=== PATIENT | male | born 1940 | race Caucasian/White ===

== ENCOUNTER 2021-06-12 07:00 | Inpatient (IN) | payer OTHER, BC ==
[2021-06-12 07:08] VITALS: BMI 30.3
[2021-06-12 08:31] LABS: HEMATOCRIT 30.5 % (35.4-49); HEMOGLOBIN 10.5 GM/dL (11.7-16.9); MCH 30.2 pg (25.7-33.7); MCHC 34.6 g/dl (32.0-35.9); MEAN CELL VOLUME 87.4 fl (80-96); MEAN PLT VOLUME 7.4 fl (7.5-11.1); PLATELET COUNT 169 10^3/uL (134-434); RBC 3.49 M/mm3 (4.00-5.60); RDW 13.5 % (11.9-15.9); WHITE BLOOD COUNT 12.9 K/mm3 (4.0-10.0)
[2021-06-12 08:36] LABS: INR 2.14 (0.83-1.09); PROTHROMBIN TIME (PATIENT) 24.1 SEC (9.7-13.0)
[2021-06-12 08:39] LABS: ACTIVATED PTT 28.9 SECONDS (25.2-36.5)
[2021-06-12 08:49] LABS: CALCIUM 8.9 mg/dL (8.5-10.1)
[2021-06-12 08:51] LABS: ALBUMIN 3.3 g/dl (3.4-5.0); BLOOD UREA NITROGEN 28.2 mg/dL (7-18)
[2021-06-12 08:53] LABS: CREATININE 1.1 mg/dL (0.55-1.3)
[2021-06-12 08:55] LABS: BILIRUBIN,TOTAL 0.6 mg/dL (0.2-1); TOT PROT 7.6 g/dl (6.4-8.2)
[2021-06-12 09:23] LABS: EPI CELLS 0 /uL (0-25.1); HYALINE CASTS 2 /uL (0-3.1); URINE APPEARANCE CLOUDY; URINE BACTERIA >9,000 /uL (0-1359); URINE BILIRUBIN NEGATIVE (NEGATIVE); URINE COLOR YELLOW; URINE GLUCOSE (UA) NEGATIVE (NEGATIVE); URINE KETONE NEGATIVE (NEGATIVE); URINE LEUK ESTERASE 1+ (NEGATIVE); URINE NITRITE NEGATIVE (NEGATIVE); URINE PROTEIN 2+ (NEGATIVE); URINE RBC 369 /uL (0-23.9); URINE UROBILINOGEN 0.2 mg/dL (0.2-1.0); URINE WBC 396 /uL (0-25.8)
[2021-06-12] MEDS ORDERED: CEFTRIAXONE 1,000 MG in DEXTROSE 5%-WATER - 50 ML IVPB ONE (09:38)
[2021-06-12] MEDS ORDERED: CEFTRIAXONE 1 GM/50 ML BAG ONE (10:16)
[2021-06-12 10:25] LABS: ANISOCYTOSIS 1+; MACROCYTOSIS 0; PLATELET ESTIMATE NORMAL
[2021-06-12] MEDS ORDERED: AZITHROMYCIN IVPB 500 MG in DEXTROSE 5%-WATER - 250 ML IVPB ONE (11:00)
[2021-06-12] MEDS ORDERED: AZITHROMYCIN IVPB 500 MG/250 ML BAG IVPB ONE (11:28)
[2021-06-12] MEDS: ATORVASTATIN CA 10 MG TABLET (FP) PO SCH (18:15)
[2021-06-12] MEDS: CHOLECALCIFEROL (VIT D3) 1,000 UNIT (25 MCG) TABLET PO SCH (18:15)
[2021-06-12] MEDS ORDERED: CHOLECALCIFEROL (VIT D3) 1,000 UNIT (25 MCG) TABLET ONE (18:23)
[2021-06-12] MEDS ORDERED: ATORVASTATIN CA 10 MG TABLET (FP) ONE (18:23)
[2021-06-12] MEDS: FLUoxetine HCL 20 MG CAPSULE PO SCH (20:42)
[2021-06-12] MEDS ORDERED: ACETAMINOPHEN 500 MG TABLET (FP) PO SCH (22:00)
[2021-06-12] MEDS: POLYETHYLENE GLYCOL (HEALTHYLAX) 3350 17 GM PACKET PO SCH (23:23)
[2021-06-12] MEDS: APIXABAN 5 MG TABLET PO SCH (23:23)
[2021-06-12] MEDS ORDERED: ACETAMINOPHEN 1000 MG/100 ML VIAL IVPB PRN (23:23)
[2021-06-12] MEDS: QUEtiapine FUMARATE 25 MG TABLET PO SCH (23:23)
[2021-06-12] MEDS ORDERED: HEPARIN NA (PORCINE) 5,000 UNITS/ML 1ML VIAL IVPUSH ONE (23:45)
[2021-06-12] MEDS ORDERED: HEPARIN NA (PORCINE) 5,000 UNITS/ML 1ML VIAL IVPUSH PRN ×2 (23:45)
[2021-06-13] MEDS: HEPARIN INFUSION - 25,000 UNITS/500 ML INFUS.BAG IVPB SCH ×2 (00:23→23:46)
[2021-06-13] MEDS: hydrOXYzine HCL 10 MG/5 ML LIQUID BULK BOTTLE PO SCH ×2 (00:27→21:44)
[2021-06-13 01:09] LABS: BASO % 0.3 % (0-2.0); EOS % 0.1 % (0-4.5); HEMATOCRIT 29.3 % (35.4-49); HEMOGLOBIN 10.2 GM/dL (11.7-16.9); LYMPH % 5.1 % (8-40); MCH 30.5 pg (25.7-33.7); MCHC 34.9 g/dl (32.0-35.9); MEAN CELL VOLUME 87.5 fl (80-96); MEAN PLT VOLUME 7.7 fl (7.5-11.1); MONO % 4.9 % (3.8-10.2); NEUT % 89.6 % (42.8-82.8); PLATELET COUNT 176 10^3/uL (134-434); RBC 3.35 M/mm3 (4.00-5.60); RDW 13.6 % (11.9-15.9); WHITE BLOOD COUNT 14.7 K/mm3 (4.0-10.0)
[2021-06-13 01:28] LABS: CALCIUM 8.9 mg/dL (8.5-10.1)
[2021-06-13 01:29] LABS: ALBUMIN 3.2 g/dl (3.4-5.0); BLOOD UREA NITROGEN 27.7 mg/dL (7-18)
[2021-06-13 01:34] LABS: BILIRUBIN,TOTAL 0.5 mg/dL (0.2-1); TOT PROT 7.4 g/dl (6.4-8.2)
[2021-06-13 01:48] LABS: INR 1.82 (0.83-1.09); PROTHROMBIN TIME (PATIENT) 20.5 SEC (9.7-13.0)
[2021-06-13 07:41] LABS: HEMATOCRIT 29.3 % (35.4-49); HEMOGLOBIN 10.3 GM/dL (11.7-16.9); MCH 30.7 pg (25.7-33.7); MCHC 35.1 g/dl (32.0-35.9); MEAN CELL VOLUME 87.4 fl (80-96); MEAN PLT VOLUME 7.8 fl (7.5-11.1); PLATELET COUNT 190 10^3/uL (134-434); RBC 3.35 M/mm3 (4.00-5.60); RDW 13.6 % (11.9-15.9)
[2021-06-13 07:47] LABS: INR 1.69 (0.83-1.09)
[2021-06-13 07:57] LABS: ALBUMIN 3.2 g/dl (3.4-5.0); BLOOD UREA NITROGEN 29.7 mg/dL (7-18); CALCIUM 8.7 mg/dL (8.5-10.1)
[2021-06-13 08:02] LABS: BILIRUBIN,TOTAL 0.5 mg/dL (0.2-1); TOT PROT 7.3 g/dl (6.4-8.2)
[2021-06-13] MEDS ORDERED: DEXTROSE 5%-WATER - 50 ML IVPB ONE ×2 (08:22→16:43)
[2021-06-13] MEDS ORDERED: cefTRIAXone SODIUM 1 GM VIAL ONE (08:22)
[2021-06-13 09:19] LABS: ANISOCYTOSIS 0; MACROCYTOSIS 0; PLATELET ESTIMATE NORMAL
[2021-06-13] MEDS ORDERED: PANTOPRAZOLE SODIUM 40 MG VIAL IVPUSH SCH (10:00)
[2021-06-13] MEDS ORDERED: CEFTRIAXONE 1 GM in DEXTROSE 5%-WATER - 50 ML IVPB SCH (10:00)
[2021-06-13] MEDS ORDERED: PATIENT'S OWN MEDICATION (NON-FORMULARY) (Omega-3s/Dha/Epa/Fish Oil [Fish Oil 1,200 Mg Sof PO SCH (10:00)
[2021-06-13] MEDS: CYANOCOBALAMIN 1,000 MCG TABLET (FP) PO SCH ×2 (10:21→11:57)
[2021-06-13] MEDS: RAMIPRIL 5 MG CAPSULE PO SCH (10:21)
[2021-06-13] MEDS: FLUoxetine HCL 20 MG CAPSULE PO SCH ×2 (10:21→11:56)
[2021-06-13] MEDS: DONEPEZIL HCL 5 MG TABLET (FP) PO SCH (10:22)
[2021-06-13] MEDS: CHOLECALCIFEROL (VIT D3) 1,000 UNIT (25 MCG) TABLET PO SCH (10:22)
[2021-06-13] MEDS: MULTIVITAMINS (DAILY MVI) TABLET (FP) PO SCH ×2 (10:22→11:58)
[2021-06-13 11:27] LABS: RETICULOCYTES 1.62 % (0.5-1.5)
[2021-06-13] MEDS: APIXABAN 5 MG TABLET PO SCH (11:54)
[2021-06-13] MEDS: FEBUXOSTAT 40 MG TAB PO SCH (11:55)
[2021-06-13] MEDS: POLYETHYLENE GLYCOL (HEALTHYLAX) 3350 17 GM PACKET PO SCH ×2 (11:55→21:43)
[2021-06-13] MEDS: DEXTROSE 5%-0.45% SALINE 1,000 ML IV SCH (13:00)
[2021-06-13] MEDS: TIOTROPIUM BROMIDE 2.5 MCG (SPIRIVA) RESPIMAT INHALER IH SCH (14:16)
[2021-06-13] MEDS ORDERED: PIPERACILLIN/TAZOBACTAM 3.375 GM VIAL IVPB ONE (16:43)
[2021-06-13] MEDS: PIPERACILLIN/TAZOB 3.375 GM 3.375 GM in DEXTROSE 5%-WATER - 50 ML IVPB SCH (17:34)
[2021-06-13] MEDS: ATORVASTATIN CA 10 MG TABLET (FP) PO SCH (21:22)
[2021-06-13] MEDS: PANTOPRAZOLE SODIUM 40 MG VIAL IVPUSH SCH (21:43)
[2021-06-13] MEDS: QUEtiapine FUMARATE 25 MG TABLET PO SCH (21:44)
[2021-06-14] MEDS ORDERED: PIPERACILLIN/TAZOBACTAM 3.375 GM VIAL IVPB ONE ×2 (01:45→11:33)
[2021-06-14] MEDS ORDERED: DEXTROSE 5%-WATER - 50 ML IVPB ONE ×2 (01:45→11:33)
[2021-06-14] MEDS: PIPERACILLIN/TAZOB 3.375 GM 3.375 GM in DEXTROSE 5%-WATER - 50 ML IVPB SCH ×2 (02:00→11:40)
[2021-06-14 07:04] LABS: BASO % 0.3 % (0-2.0); EOS % 0.2 % (0-4.5); HEMOGLOBIN 10.2 GM/dL (11.7-16.9); LYMPH % 7.5 % (8-40); MCH 30.6 pg (25.7-33.7); MCHC 35.3 g/dl (32.0-35.9); MEAN CELL VOLUME 86.7 fl (80-96); MEAN PLT VOLUME 7.9 fl (7.5-11.1); MONO % 6.7 % (3.8-10.2); NEUT % 85.3 % (42.8-82.8); PLATELET COUNT 173 10^3/uL (134-434); RBC 3.34 M/mm3 (4.00-5.60); RDW 13.2 % (11.9-15.9); WHITE BLOOD COUNT 12.6 K/mm3 (4.0-10.0)
[2021-06-14 09:29] LABS: CALCIUM 8.9 mg/dL (8.5-10.1)
[2021-06-14 09:30] LABS: BLOOD UREA NITROGEN 25.9 mg/dL (7-18)
[2021-06-14 09:35] LABS: BILIRUBIN,TOTAL 0.5 mg/dL (0.2-1)
[2021-06-14] MEDS ORDERED: PT OWN MED DRAWER 7, Y5N ONE ×2 (11:33→17:05)
[2021-06-14] MEDS: PANTOPRAZOLE SODIUM 40 MG VIAL IVPUSH SCH ×2 (11:40→21:58)
[2021-06-14] MEDS: POLYETHYLENE GLYCOL (HEALTHYLAX) 3350 17 GM PACKET PO SCH ×2 (11:40→21:50)
[2021-06-14] MEDS: MULTIVITAMINS (DAILY MVI) TABLET (FP) PO SCH (11:41)
[2021-06-14] MEDS: CYANOCOBALAMIN 1,000 MCG TABLET (FP) PO SCH (11:41)
[2021-06-14] MEDS: FLUoxetine HCL 20 MG CAPSULE PO SCH (11:42)
[2021-06-14] MEDS: DONEPEZIL HCL 5 MG TABLET (FP) PO SCH (11:42)
[2021-06-14] MEDS: CHOLECALCIFEROL (VIT D3) 1,000 UNIT (25 MCG) TABLET PO SCH (11:42)
[2021-06-14] MEDS: RAMIPRIL 5 MG CAPSULE PO SCH (11:43)
[2021-06-14] MEDS: TIOTROPIUM BROMIDE 2.5 MCG (SPIRIVA) RESPIMAT INHALER IH SCH (11:43)
[2021-06-14] MEDS: FEBUXOSTAT 40 MG TAB PO SCH (11:44)
[2021-06-14] MEDS: DEXTROSE 5%-0.45% SALINE 1,000 ML IV SCH (11:44)
[2021-06-14] MEDS ORDERED: NITROGLYCERIN 2% OINTMENT - 1GM PACKET TD ONE (13:15)
[2021-06-14 13:22] LABS: HEMATOCRIT 28.6 % (35.4-49); HEMOGLOBIN 10.2 GM/dL (11.7-16.9); MCH 30.3 pg (25.7-33.7); MCHC 35.6 g/dl (32.0-35.9); MEAN CELL VOLUME 85.1 fl (80-96); MEAN PLT VOLUME 7.1 fl (7.5-11.1); PLATELET COUNT 166 10^3/uL (134-434); RBC 3.36 M/mm3 (4.00-5.60); RDW 13.7 % (11.9-15.9); WHITE BLOOD COUNT 12.4 K/mm3 (4.0-10.0)
[2021-06-14] MEDS ORDERED: ACETAMINOPHEN 500 MG TABLET (FP) PO PRN (15:52)
[2021-06-14] MEDS: ERTAPENEM SODIUM 1 GM in SODIUM CHLORIDE 50 ML IVPB SCH (17:23)
[2021-06-14] MEDS: ATORVASTATIN CA 10 MG TABLET (FP) PO SCH (21:50)
[2021-06-14] MEDS: hydrOXYzine HCL 10 MG/5 ML LIQUID BULK BOTTLE PO SCH (21:50)
[2021-06-14] MEDS: QUEtiapine FUMARATE 25 MG TABLET PO SCH (21:50)
[2021-06-14] MEDS: NITROGLYCERIN 2% OINTMENT - 1GM PACKET TD SCH (21:58)
[2021-06-15 01:06] LABS: CARCINOEMBRYONIC ANTIGEN 3.4 ng/mL (0.0-4.7)
[2021-06-15] MEDS: NITROGLYCERIN 2% OINTMENT - 1GM PACKET TD SCH ×4 (05:06→22:21)
[2021-06-15] MEDS: ACETAMINOPHEN 1000 MG/100 ML VIAL IVPB PRN ×2 (05:47→18:43)
[2021-06-15] MEDS ORDERED: METOCLOPRAMIDE HCL INJECTION 10 MG/2 ML VIAL IVPUSH PRN (08:59)
[2021-06-15 09:22] LABS: ALBUMIN 2.9 g/dl (3.4-5.0); BLOOD UREA NITROGEN 20.9 mg/dL (7-18); CALCIUM 8.6 mg/dL (8.5-10.1); CREATININE 0.9 mg/dL (0.55-1.3)
[2021-06-15 09:24] LABS: BILIRUBIN,TOTAL 0.7 mg/dL (0.2-1); TOT PROT 6.9 g/dl (6.4-8.2)
[2021-06-15] MEDS ORDERED: PT OWN MED DRAWER 7, Y5N ONE (09:39)
[2021-06-15] MEDS: RAMIPRIL 5 MG CAPSULE PO SCH (09:53)
[2021-06-15] MEDS: PANTOPRAZOLE SODIUM 40 MG VIAL IVPUSH SCH ×2 (09:53→22:21)
[2021-06-15] MEDS: ERTAPENEM SODIUM 1 GM in SODIUM CHLORIDE 50 ML IVPB SCH (09:53)
[2021-06-15] MEDS: POLYETHYLENE GLYCOL (HEALTHYLAX) 3350 17 GM PACKET PO SCH ×2 (09:53→21:19)
[2021-06-15] MEDS: DONEPEZIL HCL 5 MG TABLET (FP) PO SCH (09:53)
[2021-06-15] MEDS: FEBUXOSTAT 40 MG TAB PO SCH (09:57)
[2021-06-15] MEDS: MULTIVITAMINS (DAILY MVI) TABLET (FP) PO SCH (09:57)
[2021-06-15] MEDS: CHOLECALCIFEROL (VIT D3) 1,000 UNIT (25 MCG) TABLET PO SCH (09:57)
[2021-06-15] MEDS: CYANOCOBALAMIN 1,000 MCG TABLET (FP) PO SCH (09:57)
[2021-06-15] MEDS: DEXTROSE 5%-0.45% SALINE 1,000 ML IV SCH ×3 (09:59→22:21)
[2021-06-15] MEDS: TIOTROPIUM BROMIDE 2.5 MCG (SPIRIVA) RESPIMAT INHALER IH SCH (10:05)
[2021-06-15 10:13] LABS: BASO % 0.2 % (0-2.0); EOS % 0.1 % (0-4.5); HEMATOCRIT 31.3 % (35.4-49); HEMOGLOBIN 10.8 GM/dL (11.7-16.9); LYMPH % 5.2 % (8-40); MCH 30.2 pg (25.7-33.7); MCHC 34.6 g/dl (32.0-35.9); MEAN CELL VOLUME 87.5 fl (80-96); MEAN PLT VOLUME 8.2 fl (7.5-11.1); NEUT % 86.5 % (42.8-82.8); PLATELET COUNT 203 10^3/uL (134-434); RBC 3.58 M/mm3 (4.00-5.60); RDW 13.8 % (11.9-15.9); WHITE BLOOD COUNT 15.2 K/mm3 (4.0-10.0)
[2021-06-15] MEDS ORDERED: FUROSEMIDE 40 MG/4 ML INJECTABLE VIAL ONE (20:28)
[2021-06-15] MEDS ORDERED: FUROSEMIDE 40 MG/4 ML INJECTABLE VIAL IVPUSH ONE (20:28)
[2021-06-15] MEDS ORDERED: ACETAMINOPHEN 1000 MG/100 ML VIAL IVPB PRN (21:07)
[2021-06-15] MEDS: ATORVASTATIN CA 10 MG TABLET (FP) PO SCH (21:19)
[2021-06-15] MEDS: hydrOXYzine HCL 10 MG/5 ML LIQUID BULK BOTTLE PO SCH (22:06)
[2021-06-15] MEDS: morphine SULFATE 4 MG/ML VIAL IVPUSH PRN (22:21)
[2021-06-16] MEDS ORDERED: FUROSEMIDE 40 MG/4 ML INJECTABLE VIAL IVPUSH ONE (00:15)
[2021-06-16] MEDS: NITROGLYCERIN 2% OINTMENT - 1GM PACKET TD SCH ×4 (03:11→21:41)
[2021-06-16] MEDS: morphine SULFATE 4 MG/ML VIAL IVPUSH PRN ×3 (04:41→17:28)
[2021-06-16 07:47] LABS: HEMATOCRIT 31.9 % (35.4-49); HEMOGLOBIN 11.3 GM/dL (11.7-16.9); MCH 30.4 pg (25.7-33.7); MCHC 35.3 g/dl (32.0-35.9); MEAN PLT VOLUME 8.1 fl (7.5-11.1); PLATELET COUNT 179 10^3/uL (134-434); RDW 13.7 % (11.9-15.9); WHITE BLOOD COUNT 23.2 K/mm3 (4.0-10.0)
[2021-06-16 09:49] LABS: ANISOCYTOSIS 1+; PLATELET ESTIMATE NORMAL
[2021-06-16] MEDS: CYANOCOBALAMIN 1,000 MCG TABLET (FP) PO SCH (11:03)
[2021-06-16] MEDS: FEBUXOSTAT 40 MG TAB PO SCH (11:03)
[2021-06-16] MEDS: CHOLECALCIFEROL (VIT D3) 1,000 UNIT (25 MCG) TABLET PO SCH (11:03)
[2021-06-16] MEDS: TIOTROPIUM BROMIDE 2.5 MCG (SPIRIVA) RESPIMAT INHALER IH SCH (11:03)
[2021-06-16] MEDS: MULTIVITAMINS (DAILY MVI) TABLET (FP) PO SCH (11:03)
[2021-06-16] MEDS: DONEPEZIL HCL 5 MG TABLET (FP) PO SCH (11:04)
[2021-06-16] MEDS: RAMIPRIL 5 MG CAPSULE PO SCH (11:04)
[2021-06-16] MEDS: POLYETHYLENE GLYCOL (HEALTHYLAX) 3350 17 GM PACKET PO SCH ×2 (11:04→21:41)
[2021-06-16] MEDS ORDERED: PT OWN MED DRAWER 7, Y5N ONE ×2 (11:24→16:33)
[2021-06-16] MEDS: PANTOPRAZOLE SODIUM 40 MG VIAL IVPUSH SCH ×2 (11:45→21:48)
[2021-06-16] MEDS: ERTAPENEM SODIUM 1 GM in SODIUM CHLORIDE 50 ML IVPB SCH (11:45)
[2021-06-16] MEDS ORDERED: METOPROLOL TARTRATE 5 MG/5 ML VIAL IVPUSH PRN (12:00)
[2021-06-16 13:48] VITALS: BP 114/56
[2021-06-16] MEDS: ACETYLCYSTEINE 20% 200MG/ML 4 ML VIAL *FOR ORAL / INH USE ONLY NEB SCH ×2 (15:38→20:35)
[2021-06-16] MEDS: ALBUTEROL SO4 0.083% IH SOL 2.5 MG/3 ML VIAL.NEB. NEB SCH ×2 (15:38→20:35)
[2021-06-16] MEDS ORDERED: ALBUTEROL SO4 0.083% IH SOL 2.5 MG/3 ML VIAL.NEB. NEB ONE (20:44)
[2021-06-16] MEDS ORDERED: ACETYLCYSTEINE 20% 200MG/ML 4 ML VIAL *FOR ORAL / INH USE ONLY ONE (20:44)
[2021-06-16] MEDS: hydrOXYzine HCL 10 MG/5 ML LIQUID BULK BOTTLE PO SCH (21:41)
[2021-06-16] MEDS: ATORVASTATIN CA 10 MG TABLET (FP) PO SCH (21:41)
[2021-06-17] MEDS: morphine SULFATE 4 MG/ML VIAL IVPUSH PRN ×4 (02:36→21:32)
[2021-06-17] MEDS: DEXTROSE 5%-0.45% SALINE 1,000 ML IV SCH ×2 (02:40→21:34)
[2021-06-17] MEDS: NITROGLYCERIN 2% OINTMENT - 1GM PACKET TD SCH ×4 (03:30→21:33)
[2021-06-17] MEDS: ACETYLCYSTEINE 20% 200MG/ML 4 ML VIAL *FOR ORAL / INH USE ONLY NEB SCH ×4 (07:30→19:57)
[2021-06-17] MEDS: ALBUTEROL SO4 0.083% IH SOL 2.5 MG/3 ML VIAL.NEB. NEB SCH ×4 (07:30→19:57)
[2021-06-17] MEDS: RAMIPRIL 5 MG CAPSULE PO SCH (09:57)
[2021-06-17] MEDS: POLYETHYLENE GLYCOL (HEALTHYLAX) 3350 17 GM PACKET PO SCH ×2 (09:57→21:33)
[2021-06-17] MEDS: DONEPEZIL HCL 5 MG TABLET (FP) PO SCH (09:57)
[2021-06-17] MEDS: MULTIVITAMINS (DAILY MVI) TABLET (FP) PO SCH (09:58)
[2021-06-17] MEDS: ERTAPENEM SODIUM 1 GM in SODIUM CHLORIDE 50 ML IVPB SCH (09:58)
[2021-06-17] MEDS: CYANOCOBALAMIN 1,000 MCG TABLET (FP) PO SCH (09:58)
[2021-06-17] MEDS: FEBUXOSTAT 40 MG TAB PO SCH (09:58)
[2021-06-17] MEDS: CHOLECALCIFEROL (VIT D3) 1,000 UNIT (25 MCG) TABLET PO SCH (09:58)
[2021-06-17] MEDS: TIOTROPIUM BROMIDE 2.5 MCG (SPIRIVA) RESPIMAT INHALER IH SCH (09:58)
[2021-06-17] MEDS: PANTOPRAZOLE SODIUM 40 MG VIAL IVPUSH SCH ×2 (13:12→21:34)
[2021-06-17] MEDS: ACETAMINOPHEN 1000 MG/100 ML VIAL IVPB PRN (17:23)
[2021-06-17] MEDS: ATORVASTATIN CA 10 MG TABLET (FP) PO SCH (21:33)
[2021-06-17] MEDS: hydrOXYzine HCL 10 MG/5 ML LIQUID BULK BOTTLE PO SCH (21:33)
[2021-06-18] MEDS: NITROGLYCERIN 2% OINTMENT - 1GM PACKET TD SCH ×4 (02:49→22:26)
[2021-06-18] MEDS: morphine SULFATE 4 MG/ML VIAL IVPUSH PRN ×2 (03:21→10:15)
[2021-06-18] MEDS: ACETAMINOPHEN 1000 MG/100 ML VIAL IVPB PRN ×2 (03:23→16:00)
[2021-06-18 08:43] VITALS: PULSE 79; TEMP 98.2
[2021-06-18] MEDS: ACETYLCYSTEINE 20% 200MG/ML 4 ML VIAL *FOR ORAL / INH USE ONLY NEB SCH ×4 (10:14→20:15)
[2021-06-18] MEDS: ALBUTEROL SO4 0.083% IH SOL 2.5 MG/3 ML VIAL.NEB. NEB SCH ×4 (10:15→20:15)
[2021-06-18] MEDS ORDERED: morphine SULFATE 4 MG/ML VIAL IVPUSH PRN (10:17)
[2021-06-18] MEDS: RAMIPRIL 5 MG CAPSULE PO SCH (10:17)
[2021-06-18] MEDS: POLYETHYLENE GLYCOL (HEALTHYLAX) 3350 17 GM PACKET PO SCH ×2 (10:17→22:26)
[2021-06-18] MEDS: DONEPEZIL HCL 5 MG TABLET (FP) PO SCH (10:17)
[2021-06-18] MEDS: CHOLECALCIFEROL (VIT D3) 1,000 UNIT (25 MCG) TABLET PO SCH (10:18)
[2021-06-18] MEDS: TIOTROPIUM BROMIDE 2.5 MCG (SPIRIVA) RESPIMAT INHALER IH SCH (10:18)
[2021-06-18] MEDS: MULTIVITAMINS (DAILY MVI) TABLET (FP) PO SCH (10:18)
[2021-06-18] MEDS: ERTAPENEM SODIUM 1 GM in SODIUM CHLORIDE 50 ML IVPB SCH (10:18)
[2021-06-18] MEDS: FEBUXOSTAT 40 MG TAB PO SCH (10:18)
[2021-06-18] MEDS: PANTOPRAZOLE SODIUM 40 MG VIAL IVPUSH SCH ×2 (10:18→22:26)
[2021-06-18] MEDS: CYANOCOBALAMIN 1,000 MCG TABLET (FP) PO SCH (10:18)
[2021-06-18] MEDS ORDERED: MORPHINE SULFATE/0.9% NACL/PF 100 MG/100 ML BAG IVPB SCH (11:15)
== END 2021-06-18 23:13 | disposition expired | DRG 177 ==
LOC: JER 07:00 → JERBED 09:28 → J4S 20:56
PROVIDERS: ADMIT Specialist; ATTEND Specialist
PROC: 0D9670Z Drainage of Stomach with Drainage Device, Via Natural or Artificial Opening (ICD-10-PCS; principal; 2021-06-13)
DX: J69.0 Pneumonitis due to inhalation of food and vomit (principal); J96.01 Acute respiratory failure with hypoxia; I21.4 Non-ST elevation (NSTEMI) myocardial infarction; J44.0 Chronic obstructive pulmonary disease with (acute) lower respiratory infection; N39.0 Urinary tract infection, site not specified; J98.11 Atelectasis; K92.2 Gastrointestinal hemorrhage, unspecified; K56.7 Ileus, unspecified; C79.51 Secondary malignant neoplasm of bone; K92.0 Hematemesis; G30.9 Alzheimer's disease, unspecified; I25.10 Atherosclerotic heart disease of native coronary artery without angina pectoris; F02.80 Dementia in other diseases classified elsewhere, unspecified severity, without behavioral disturbance, psychotic disturbance, mood disturbance, and anxiety; R59.0 Localized enlarged lymph nodes; M10.9 Gout, unspecified; I10 Essential (primary) hypertension; I44.0 Atrioventricular block, first degree; E78.5 Hyperlipidemia, unspecified; C61 Malignant neoplasm of prostate; I48.91 Unspecified atrial fibrillation; M88.9 Osteitis deformans of unspecified bone; N40.0 Benign prostatic hyperplasia without lower urinary tract symptoms; K59.00 Constipation, unspecified; R93.7 Abnormal findings on diagnostic imaging of other parts of musculoskeletal system; B96.20 Unspecified Escherichia coli [E. coli] as the cause of diseases classified elsewhere; D72.829 Elevated white blood cell count, unspecified; I46.9 Cardiac arrest, cause unspecified; Z80.0 Family history of malignant neoplasm of digestive organs; Z66 Do not resuscitate; Z95.0 Presence of cardiac pacemaker
CPT/HCPCS: 36415; 71045-TC-FY; 71250-TC; 74176-TC; 74177-TC; 80053; 81003; 82105; 82378; 82550; 82784; 83605; 83615; 84153; 84155; 84165; 84484; 85025; 85027; 85045; 85610; 85730; 86140; 86334; 86850; 86900; 86901; 87040; 87086; 87186; 88300-TC; 93005; 93010; 93306-TC; 94640; 99285-25; C9803; J0131; J1644; Q9967; U0003; U0005